=== PATIENT | male | born 1990 | race Caucasian/White ===

== ENCOUNTER 2016-09-03 15:21 | Emergency (ER) | payer SELFPAY ==
[2016-09-03 15:24] VITALS: BP 120/71; PULSE 79; RESP 22; TEMP 98.3; O2SAT 99
--- NOTE | 2016-09-03 15:29 | PD ---
Physical Exam Date Seen by Provider: Sep 03, 2016 Time Seen by Provider: 15:27 Data Data Last Documented VS Vital Signs Date Time Temp Pulse Resp B/P Pulse Ox O2 Delivery O2 Flow Rate FiO2 09/03/16 15:24 98.3 79 22 120/71 99 MDM Supervised Visit with EVGENY: No Narrative Course 26 YO M with complaint of 1 week history constipation, abdominal and rectal pain. + Nausea. Vitals reviewed. Awaiting bed placement. Mary Cruz Sep 03, 2016 15:29
--- NOTE | 2016-09-03 15:35 | PD ---
HPI Chief Complaint: Abdominal Pain Time Seen by Provider: 15:35 Travel History International Travel<30 days: No Contact w/Intl Traveler<30days: No Traveled to known affect area: No History of Present Illness HPI 26-year-old male came to the emergency room with history of constipation for past 7 days. Patient says he is also experiencing significant anal pain. He has been using hemorrhoid cream. He try to have a bowel movement today and had a very little quantity. He is afraid to eat because of the constipation and the pain. He's never had anything like this before. Vital signs are otherwise stable. Denies of any opiate use or abuse. [facility] Past Medical History Narrative Medical List of his past medical, surgical, social and family history is reviewed from the nursing note. Social History Tobacco Use: Yes Allergies-Medications (Allergen,Severity, Reaction): Coded Allergies: No Known Allergies (Unverified , 09/03/16) Comments No known drug allergies. Reported Meds & Prescriptions Reported Meds & Active Scripts Active Anucort-Hc Supp (Hydrocortisone Acetate Supp) 25 Mg Supp 25 Mg RECTAL BID 5 Days Miralax Powder (Polyethylene Glycol 3350 Powder) 17 Gm Powd 17 Gm PO DAILY Mix and dissolve one measuring cap-ful (17 grams) in water or juice. Narrative Medication List of his home medications reviewed from the nursing note. Review of Systems Except as stated in HPI: all other systems reviewed are Neg Physical Exam Narrative GENERAL: Awake, alert, anxious, mild distress SKIN: Focused skin assessment warm/dry. HEAD: Atraumatic. Normocephalic. EYES: Pupils equal and round. No scleral icterus. No injection or drainage. ENT: No nasal bleeding or discharge. Mucous membranes pink and moist. NECK: Trachea midline. No JVD. CARDIOVASCULAR: Regular rate and rhythm. No murmur appreciated. RESPIRATORY: No accessory muscle use. Clear to auscultation. Breath sounds equal bilaterally. GASTROINTESTINAL: Abdomen soft, non-tender, nondistended. Hepatic and splenic margins not palpable. Rectal exam shows a small external hemorrhoid at 7 o' clock position. There is significant anal spasm due to the pain. MUSCULOSKELETAL: No obvious deformities. No clubbing. No cyanosis. No edema. NEUROLOGICAL: Awake and alert. No obvious cranial nerve deficits. Motor grossly within normal limits. Normal speech. PSYCHIATRIC: Appropriate mood and affect; insight and judgment normal. Data Data Last Documented VS Vital Signs Date Time Temp Pulse Resp B/P Pulse Ox O2 Delivery O2 Flow Rate FiO2 09/03/16 15:24 98.3 79 22 120/71 99 Orders Fleets Enema (Adult) (Fleets Enema (Adul (09/03/16 16:00) MDM Medical Decision Making Medical Screen Exam Complete: Yes Emergency Medical Condition: Yes Medical Record Reviewed: Yes Differential Diagnosis Anal tear, constipation Narrative Course 4:40 PM patient was given an adult Fleet enema after which he had a small amount of bowel movement. I'll discharge him home at this point. Procedures EKG Prior to Arrival: No Diagnosis Primary Impression: Constipation Qualified Code: K59.00 - Constipation, unspecified constipation type Additional Impression: Anal pain Referrals: Primary Care Physician 3 days Additional Instructions: Please return to the ER if the condition worsens or any other new concerns. Otherwise follow-up with your primary care. Take the medication as per the prescription direction. Drink lots of fluid and eat high fiber diet. Med/Other Pt SpecificInfo: Prescription(s) given Scripts Hydrocortisone Acetate Supp (Anucort-Hc Supp)25 Mg Supp25 Mg RECTAL BID 5 Days Ref 0 Prov:Veniat Elam MD 09/03/16 Polyethylene Glycol 3350 Powder (Miralax Powder)17 Gm Powd17 Gm PO DAILY #1 CAN Ref 0 Mix and dissolve one measuring cap-ful (17 grams) in water or juice. Prov:Venita Elam MD 09/03/16 Disposition: 01 DISCHARGE HOME Condition: Stable Venita Elam MD Sep 03, 2016 15:35
[2016-09-03] MEDS ORDERED: SOD PHOSPHATE/SOD BIPHOSPHATE (ADULT) ENEMA 133ML RECTAL ONE (16:00)
[2016-09-03] MEDS ORDERED: ANUC25SU RECTAL (17:03)
[2016-09-03] MEDS ORDERED: MIRA3350 PO (17:03)
== END 2016-09-03 17:06 | disposition home or self-care (01) ==
LOC: NEPD 15:21
DX: K59.00 Constipation, unspecified (principal); K62.89 Other specified diseases of anus and rectum; Z72.0 Tobacco use
CPT/HCPCS: 99284